=== PATIENT | female | born 1940 | race Caucasian/White ===

== ENCOUNTER 2017-09-08 18:09 | Observation (INO) | payer OTHER ==
[~2017-09-08] VITALS: Ht 157.5 cm; Wt 52.6 kg
[~2017-09-08 18:09] MED LIST: ENAL10TA7 PO; LOVA1TAB47 PO
[2017-09-08 18:30] VITALS: BP 171/77; PULSE 64; RESP 16; TEMP 97.4; O2SAT 99
--- NOTE | 2017-09-08 19:47 | RADRPT ---
EXAM DATE/TIME: 09/08/2017 19:22 [facility] COMPARISON: No previous studies available for comparison. INDICATIONS : Cough, confusion. MEDICAL HISTORY : None. SURGICAL HISTORY : None. ENCOUNTER: Initial ACUITY: 2 weeks PAIN SCORE: 0/10 LOCATION: Bilateral chest FINDINGS: A single view of the chest demonstrates the lungs to be symmetrically aerated without evidence of mas s, infiltrate or effusion. The cardiomediastinal contours are unremarkable. Osseous structures are intact. CONCLUSION: No acute disease. There is no evidence of pneumonia. Richard Parker MD on September 08, 2017 at 19:45 Board Certified Radiologist. This report was verified electronically.
--- NOTE | 2017-09-08 19:59 | RADRPT ---
EXAM DATE/TIME: 09/08/2017 19:50 [facility] COMPARISON: No previous studies available for comparison. INDICATIONS : Altered mental status, loss of memory. RADIATION DOSE: 33.50 CTDIvol (mGy) MEDICAL HISTORY : Hypertension. Cerebrovascular disease. SURGICAL HISTORY : Hysterectomy. ENCOUNTER: Initial ACUITY: 1 day PAIN SCALE: 0/10 LOCATION: cranial TECHNIQUE: Multiple contiguous axial images were obtained of the head. Using automated exposure control and adj ustment of the mA and/or kV according to patient size, radiation dose was kept as low as reasonably a chievable to obtain optimal diagnostic quality images. DICOM format image data is available electro nically for review and comparison. FINDINGS: CEREBRUM: The ventricles are normal for age. No evidence of midline shift, mass lesion, hemorrhage or acute in farction. No extra-axial fluid collections are seen. POSTERIOR FOSSA: The cerebellum and brainstem are intact. The 4th ventricle is midline. The cerebellopontine angle i s unremarkable. EXTRACRANIAL: The visualized portion of the orbits is intact. SKULL: The calvaria is intact. No evidence of skull fracture. CONCLUSION: Negative noncontrast head CT. Richard Parker MD on September 08, 2017 at 19:56 Board Certified Radiologist. This report was verified electronically.
[2017-09-08 20:38] LABS: AUTOMATED NEUTROPHIL # 2.8 TH/MM3 (1.8-7.7); BASOPHIL # 0.1 TH/MM3 (0-0.2); BASOPHIL % 1.1 % (0.0-2.0); EOSINOPHIL # 0.2 TH/MM3 (0-0.4); HEMATOCRIT 40.1 % (35.0-46.0); HEMOGLOBIN 13.8 GM/DL (11.6-15.3); LYMPH % 41.6 % (9.0-44.0); LYMPHOCYTE # 2.5 TH/MM3 (1.0-4.8); MEAN CELL VOLUME 92.1 FL (80.0-100.0); MEAN CORPUSCULAR HEMOGLOBIN 31.7 PG (27.0-34.0); MEAN CORPUSCULAR HGB CONC 34.5 % (32.0-36.0); MEAN PLATELET VOLUME 8.8 FL (7.0-11.0); MONO % 7.4 % (0.0-8.0); MONOCYTE # 0.4 TH/MM3 (0-0.9); NEUT % 45.9 % (16.0-70.0); PLATELET COUNT 274 TH/MM3 (150-450); RED BLOOD COUNT 4.36 MIL/MM3 (4.00-5.30); RED CELL DISTRIBUTION WIDTH 14.1 % (11.6-17.2)
[2017-09-08 20:49] LABS: AMORPHOUS SEDIMENT, URINE RARE; BACTERIA, URINE MANY /hpf; BILIRUBIN, URINE NEG (NEG); BLOOD, URINE NEG (NEG); GLUCOSE,URINE NEG (NEG); KETONE, URINE NEG (NEG); NITRITE,URINE NEG (NEG); PH, URINE 5.5 (5.0-8.5); SQUAMOUS EPITHELIAL CELL URINE 11 /hpf (0-5); URINE COLOR LIGHT-YELLOW (YELLW/STRAW); URINE LEUKOCYTE ESTERASE TRACE (NEG)
[2017-09-08] MEDS ORDERED: ESTR1TAB PO (20:58)
[2017-09-08] MEDS ORDERED: ENAL10TA PO (20:58)
[2017-09-08] MEDS ORDERED: LOVA20TA PO (20:58)
[2017-09-08 21:00] VITALS: BP 163/85; PULSE 68; RESP 18; O2SAT 97
[2017-09-08 21:04] LABS: ALBUMIN 3.9 GM/DL (3.4-5.0); AST (GOT) 24 U/L (15-37); BICARBONATE 25.3 MEQ/L (21.0-32.0); BLOOD UREA NITROGEN 13 MG/DL (7-18); CHLORIDE 104 MEQ/L (98-107); CREATININE 0.79 MG/DL (0.50-1.00); GLOMERULAR FILTRATION RATE 70 ML/MIN (>89); GLUCOSE,RANDOM 86 MG/DL (74-106); SODIUM (NA) 139 MEQ/L (136-145)
[2017-09-08 21:06] LABS: ALT (GPT) 24 U/L (10-53)
[2017-09-08 21:10] LABS: ALKALINE PHOSPHATASE 81 U/L (45-117); TOTAL BILIRUBIN ADULT 0.6 MG/DL (0.2-1.0); TOTAL PROTEIN 7.6 GM/DL (6.4-8.2); TROPONIN I LESS THAN 0.02 NG/ML (0.02-0.05)
--- NOTE | 2017-09-08 21:58 | PD ---
HPI Chief Complaint: Neuro Symptoms/ Deficits Time Seen by Provider: 18:55 Travel History International Travel<30 days: No Contact w/Intl Traveler<30days: No History of Present Illness HPI 77-year-old female that presents to the ED for evaluation of altered mental status. Per patient she has been having episodes of confusion since yesterday. Per patient herself she does not see anything wrong but per family report she has been having personality changes and episodes were "she does not seem to be waited ". Per family and patient she has never had this before. No history of stroke or TIA in the past. She denies any chest pain or shortness of breath. She denies any headache. No numbness, tingling, weakness. Able to move the arms and legs. Patient herself states that she does not see anything wrong but family states that she has been having some episodes where she is having trouble speaking and appears to be very confused. She has a history of having had cold-like symptoms about a couple of weeks ago and was diagnosed with bronchitis and treated with antibiotics. She states that she has been better since that has had no fevers chills or sweats or cough or runny nose. Denies any urinary or bowel movement issues. No other medical issues. PFSH Past Medical History Cancer: No Cardiovascular Problems: Yes High Cholesterol: Yes Endocrine: No Genitourinary: No Hypertension: Yes Immune Disorder: No Implanted Vascular Access Dvce: Yes Musculoskeletal: Yes Neurologic: No Psychiatric: No Reproductive: Yes (PELVIC PROLAPSE) Respiratory: No Past Surgical History Abdominal Surgery: Yes (AGE 5 APPENDECTOMY) Body Medical Devices: BREAST IMPLANTS Genitourinary Surgery: Yes (95' BLADDER SUSPENSION X 2) Gynecologic Surgery: Yes (HYSTERECTOMY AGE 34) Oral Surgery: Yes (AGE 11 T&A) Pacemaker: No Other Surgery: Yes Social History Alcohol Use: No Tobacco Use: No Allergies-Medications (Allergen,Severity, Reaction): Coded Allergies: Fish Containing Products (Unverified Allergy, Severe, TONGUE SWELLING, 03/18) codeine (Unverified Allergy, Severe, NAUSEA/VOMITING, 09/08/17) propoxyphene (Unverified Allergy, Severe, NAUSEA/VOMITING, 09/08/17) Reported Meds & Prescriptions Reported Meds & Active Scripts Active Reported Lovastatin 20 Mg Tab 20 Mg PO DAILY Estradiol 1 Mg Tab 1 Mg PO DAILY Enalapril (Enalapril Maleate) 10 Mg Tab 10 Mg PO DAILY Review of Systems Except as stated in HPI: all other systems reviewed are Neg Physical Exam Narrative GENERAL: SKIN: Warm and dry. HEAD: Atraumatic. Normocephalic. EYES: Pupils equal and round 4 mm reactive to light and accommodation. No scleral icterus. No injection or drainage. ENT: No nasal bleeding or discharge. Mucous membranes pink and moist. Tongue is midline. No uvula deviation. NECK: Trachea midline. No JVD. CARDIOVASCULAR: Regular rate and rhythm. No murmurs, S3, S4. RESPIRATORY: No accessory muscle use. Clear to auscultation. Breath sounds equal bilaterally. GASTROINTESTINAL: Abdomen soft, non-tender, nondistended. Hepatic and splenic margins not palpable. MUSCULOSKELETAL: Extremities without clubbing, cyanosis, or edema. No obvious deformities. Full range of motion of the upper and lower extremities bilaterally. Sensation intact bilaterally. NEUROLOGICAL: Awake and alert. No obvious cranial nerve deficits. Motor grossly within normal limits. Five out of 5 muscle strength in the arms and legs. Normal speech but patient does appear to have sometimes trouble communicating. PSYCHIATRIC: Appropriate mood and affect; insight and judgment normal. Data Data Last Documented VS Vital Signs Date Time Temp Pulse Resp B/P (MAP) Pulse Ox O2 Delivery O2 Flow Rate FiO2 09/08/17 21:00 68 18 163/85 (111) 97 Room Air 09/08/17 18:30 97.4 Orders Orders Electrocardiogram (09/08/17 18:35) Complete Blood Count With Diff (09/08/17 18:35) Comprehensive Metabolic Panel (09/08/17 18:35) Prothrombin Time / Inr (Pt) (09/08/17 18:35) Act Partial Throm Time (Ptt) (09/08/17 18:35) Troponin I (09/08/17 18:35) Urinalysis - C+S If Indicated (09/08/17 18:35) Ct Brain W/O Iv Contrast(Rout) (09/08/17 18:35) Chest, Single Ap (09/08/17 ) Urine Culture (09/08/17 19:45) Labs Laboratory Tests Test 09/08/17 19:45 09/08/17 20:05 Urine Color LIGHT-YELLOW Urine Turbidity CLEAR Urine pH 5.5 Urine Specific [place] 1.010 Urine Protein NEG mg/dL Urine Glucose (UA) NEG mg/dL Urine Ketones NEG mg/dL Urine Occult Blood NEG Urine Nitrite NEG Urine Bilirubin NEG Urine Urobilinogen LESS THAN 2.0 MG/DL Urine Leukocyte Esterase TRACE Urine RBC 1 /hpf Urine WBC 4 /hpf Urine Squamous Epithelial Cells 11 /hpf Urine Amorphous Sediment RARE Urine Bacteria MANY /hpf Microscopic Urinalysis Comment CATH-CULTURE IND White Blood Count 6.0 TH/MM3 Red Blood Count 4.36 MIL/MM3 Hemoglobin 13.8 GM/DL Hematocrit 40.1 % Mean Corpuscular Volume 92.1 FL Mean Corpuscular Hemoglobin 31.7 PG Mean Corpuscular Hemoglobin Concent 34.5 % Red Cell Distribution Width 14.1 % Platelet Count 274 TH/MM3 Mean Platelet Volume 8.8 FL Neutrophils (%) (Auto) 45.9 % Lymphocytes (%) (Auto) 41.6 % Monocytes (%) (Auto) 7.4 % Eosinophils (%) (Auto) 4.0 % Basophils (%) (Auto) 1.1 % Neutrophils # (Auto) 2.8 TH/MM3 Lymphocytes # (Auto) 2.5 TH/MM3 Monocytes # (Auto) 0.4 TH/MM3 Eosinophils # (Auto) 0.2 TH/MM3 Basophils # (Auto) 0.1 TH/MM3 CBC Comment DIFF FINAL Differential Comment Prothrombin Time 10.0 SEC Prothromb Time International Ratio 1.0 RATIO Activated Partial Thromboplast Time 24.9 SEC Blood Urea Nitrogen 13 MG/DL Creatinine 0.79 MG/DL Random Glucose 86 MG/DL Total Protein 7.6 GM/DL Albumin 3.9 GM/DL Calcium Level 9.0 MG/DL Alkaline Phosphatase 81 U/L Aspartate Amino Transf (AST/SGOT) 24 U/L Alanine Aminotransferase (ALT/SGPT) 24 U/L Total Bilirubin 0.6 MG/DL Sodium Level 139 MEQ/L Potassium Level 3.4 MEQ/L Chloride Level 104 MEQ/L Carbon Dioxide Level 25.3 MEQ/L Anion Gap 10 MEQ/L Estimat Glomerular Filtration Rate 70 ML/MIN Troponin I LESS THAN 0.02 NG/ML MDM Medical Decision Making Medical Screen Exam Complete: Yes Emergency Medical Condition: Yes Medical Record Reviewed: Yes Interpretation(s) CBC & BMP Diagram 09/08/17 20:05 Total Protein 7.6, Albumin 3.9, Calcium Level 9.0, Alkaline Phosphatase 81, Aspartate Amino Transf (AST/SGOT) 24, Alanine Aminotransferase (ALT/SGPT) 24, Total Bilirubin 0.[address] 09/08/17 1835 Signed Impressions: Service Date/Time: Friday, September 08, 2017 19:50 - CONCLUSION: Negative noncontrast head CT. Richard Parker MD Chest X-Ray 09/08/17 0000 Signed Impressions: Service Date/Time: Friday, September 08, 2017 19:22 - CONCLUSION: No acute disease. There is no evidence of pneumonia. Richard Parker MD UA negative EKG shows sinus rhythm with no sign of acute ischemia or arrhythmia but LBBB noted. Patient has similar findings on previous EKG at this facility per Dr Salvador. Troponin and CK-MB negative. Differential Diagnosis CVA versus TIA versus altered mental status versus aphasia versus sepsis versus UTI Narrative Course 77-year-old female that presents to the ED for evaluation of altered mental status and confusion. Patient was properly examined and was found to have signs and symptoms concerning for CVA versus TIA. Labs and imaging ordered. Last and imaging here essentially unremarkable. No sign of acute disease but unclear of the symptoms. Patient has had symptoms for about 48 hours and continues to have episodes of this. Definetly concerning for CVA. She does have risk factors including high blood pressure and high cholesterol as well as age. Recommendation is for admission for further eval. Case discussed with Dr. Martinez who agrees to admission. Diagnosis Primary Impression: Altered mental state Qualified Codes: R41.82 - Altered mental status, unspecified Additional Impression: Aphasia Admitting Information Admitting Physician Requests: Brandon Medina Sep 08, 2017 21:58
[2017-09-09] VITALS (7 sets, daily range): BP systolic 112–158; BP diastolic 63–77; PULSE 64–84; RESP 15–17; TEMP 97.3–98.1; O2SAT 94–97
[2017-09-09] MEDS ORDERED: POTASSIUM CHLORIDE 20 MEQ CONTROLLED RELEASE TAB PO ONE (01:45)
[2017-09-09] MEDS ORDERED: ASPIRIN 325 MG TAB PO ONE (01:45)
--- NOTE | 2017-09-09 01:45 | HHI.HP ---
[facility] Uriel Keating MD Admission Diagnosis altered mental status, aphasia, CVA r/o Diagnoses: Travel History International Travel<30 Days: No Contact w/Intl Traveler <30 Da: No History of Present Illness 77-year-old female with a past medical history significant for hypertension and hyperlipidemia presents to the emergency department for the evaluation of altered mental status. The patient reports that approximately 3 weeks ago she developed upper respiratory symptoms and was given a prescription for azithromycin and Medrol Dosepak. She reports then that she started feeling odd after completing these medications. She states she has a three-day history of feeling "like she couldn't think." She reports that her daughters became concerned when she was out with them 2 days ago and was unable to find her words. He denies any slurred speech or facial droop. Denies any focal weakness. She reports memory loss since yesterday. She states she is unable to remember specific events and when she is questioned about her past medical and surgical history she has a difficult time re-creating events. Her friend who is bedside reports that different from her baseline. She denies any headaches. Denies dizziness. No shortness of breath or chest pain. No nausea/ vomiting/diarrhea. No abdominal pain. No weakness or fatigue. Review of Systems Except as stated in HPI: all other systems reviewed are Neg Past Family Social History Past Medical History Hypertension Hyperlipidemia Past Surgical History Appendectomy Tonsillectomy Reported Medications Reported Meds & Active Scripts Active Reported Lovastatin 20 Mg Tab 20 Mg PO DAILY Estradiol 1 Mg Tab 1 Mg PO DAILY Enalapril (Enalapril Maleate) 10 Mg Tab 10 Mg PO DAILY Allergies: Coded Allergies: Fish Containing Products (Unverified Allergy, Severe, TONGUE SWELLING, 03/18) codeine (Unverified Allergy, Severe, NAUSEA/VOMITING, 09/08/17) propoxyphene (Unverified Allergy, Severe, NAUSEA/VOMITING, 09/08/17) Family History Mother of pancreatic cancer Social History Rare alcohol. Denies tobacco and illicit drugs. Physical Exam Vital Signs Vital Signs Date Time Temp Pulse Resp B/P (MAP) Pulse Ox O2 Delivery O2 Flow Rate FiO2 09/09/17 01:27 97.3 64 17 158/72 (100) 96 09/09/17 00:39 80 18 155/72 (99) 97 09/08/17 21:00 68 18 163/85 (111) 97 Room Air 09/08/17 18:30 97.4 64 16 171/77 (108) 99 Physical Exam GENERAL: female sitting up in bed SKIN: No rashes, ecchymoses or lesions. Cool and dry. HEAD: Atraumatic. Normocephalic. No temporal or scalp tenderness. EYES: Pupils equal round and reactive. Extraocular motions intact. No scleral icterus. No injection or drainage. ENT: Nose without bleeding, purulent drainage or septal hematoma. Throat without erythema, tonsillar hypertrophy or exudate. Uvula midline. Airway patent. NECK: Trachea midline. No JVD or lymphadenopathy. Supple, nontender, no meningeal signs. CARDIOVASCULAR: Regular rate and rhythm without murmurs, gallops, or rubs. RESPIRATORY: Clear to auscultation. Breath sounds equal bilaterally. No wheezes , rales, or rhonchi. GASTROINTESTINAL: Abdomen soft, non-tender, nondistended. No hepato-splenomegaly , or palpable masses. No guarding. MUSCULOSKELETAL: Extremities without clubbing, cyanosis, or edema. No joint tenderness, effusion, or edema noted. No calf tenderness. NEUROLOGICAL: Awake and alert. Cranial nerves II through XII intact. Motor and sensory within normal limits. Five out of 5 muscle strength in all muscle groups. Normal speech. Laboratory Laboratory Tests Test 09/08/17 19:45 09/08/17 20:05 Urine Color LIGHT-YELLOW Urine Turbidity CLEAR Urine pH 5.5 Urine Specific [place] 1.010 Urine Protein NEG Urine Glucose (UA) NEG Urine Ketones NEG Urine Occult Blood NEG Urine Nitrite NEG Urine Bilirubin NEG Urine Urobilinogen LESS THAN 2.0 Urine Leukocyte Esterase TRACE Urine RBC 1 Urine WBC 4 Urine Squamous Epithelial Cells 11 Urine Amorphous Sediment RARE Urine Bacteria MANY Microscopic Urinalysis Comment CATH-CULTURE IND White Blood Count 6.0 Red Blood Count 4.36 Hemoglobin 13.8 Hematocrit 40.1 Mean Corpuscular Volume 92.1 Mean Corpuscular Hemoglobin 31.7 Mean Corpuscular Hemoglobin Concent 34.5 Red Cell Distribution Width 14.1 Platelet Count 274 Mean Platelet Volume 8.8 Neutrophils (%) (Auto) 45.9 Lymphocytes (%) (Auto) 41.6 Monocytes (%) (Auto) 7.4 Eosinophils (%) (Auto) 4.0 Basophils (%) (Auto) 1.1 Neutrophils # (Auto) 2.8 Lymphocytes # (Auto) 2.5 Monocytes # (Auto) 0.4 Eosinophils # (Auto) 0.2 Basophils # (Auto) 0.1 CBC Comment DIFF FINAL Differential Comment Prothrombin Time 10.0 Prothromb Time International Ratio 1.0 Activated Partial Thromboplast Time 24.9 Blood Urea Nitrogen 13 Creatinine 0.79 Random Glucose 86 Total Protein 7.6 Albumin 3.9 Calcium Level 9.0 Alkaline Phosphatase 81 Aspartate Amino Transf (AST/SGOT) 24 Alanine Aminotransferase (ALT/SGPT) 24 Total Bilirubin 0.6 Sodium Level 139 Potassium Level 3.4 Chloride Level 104 Carbon Dioxide Level 25.3 Anion Gap 10 Estimat Glomerular Filtration Rate 70 Troponin I LESS THAN 0.02 Date/Time Source Procedure Growth Status 09/08/17 19:45 Urine Catheterized Urine Urine Culture Pending Received Result Diagram: 09/08/17200409/08/172004 Caprini VTE Risk Assessment Caprini VTE Risk Assessment: Mod/High Risk (score >= 2) Caprini Risk Assessment Model Point Value = 1 Point Value = 2 Point Value = 3 Point Value = 5 Age 41-60 Minor surgery BMI > 25 kg/m2 Swollen legs Varicose veins or History of unexplained or recurrent spontaneous Oral contraceptives or hormone replacement Sepsis (< 1 month) Serious lung disease, including pneumonia (< 1 month) Abnormal pulmonary function Acute myocardial infarction Congestive heart failure (< 1 month) History of inflammatory bowel disease Medical patient at bed rest Age 61-74 Arthroscopic surgery Major open surgery (> 45 min) Laparoscopic surgery (> 45 min) Malignancy Confined to bed (> 72 hours) Immobilizing plaster cast Central venous access Age >= 75 History of VTE Family history of VTE Factor V Leiden Prothrombin [id number] Lupus anticoagulant Anticardiolipin antibodies Elevated serum homocysteine Heparin-induced thrombocytopenia Other congenital or acquired thrombophilia Stroke (< 1 month) Elective arthroplasty Hip, pelvis, or leg fracture Acute spinal cord injury (< 1 month) Prophylaxis Regimen Total Risk Factor Score Risk Level Prophylaxis Regimen 0-1 Low Early ambulation 2 Moderate Order ONE of the following: *Sequential Compression Device (SCD) *Heparin 5000 units SQ BID 3-4 Higher Order ONE of the following medications: *Heparin 5000 units SQ TID *Enoxaparin/Lovenox 40 mg SQ daily (WT < 150 kg, CrCl > 30 mL/min) *Enoxaparin/Lovenox 30 mg SQ daily (WT < 150 kg, CrCl > 10-29 mL/min) *Enoxaparin/Lovenox 30 mg SQ BID (WT < 150 kg, CrCl > 30 mL/min) AND/OR *Sequential Compression Device (SCD) 5 or more Highest Order ONE of the following medications: *Heparin 5000 units SQ TID (Preferred with Epidurals) *Enoxaparin/Lovenox 40 mg SQ daily (WT < 150 kg, CrCl > 30 mL/min) *Enoxaparin/Lovenox 30 mg SQ daily (WT < 150 kg, CrCl > 10-29 mL/min) *Enoxaparin/Lovenox 30 mg SQ BID (WT < 150 kg, CrCl > 30 mL/min) AND *Sequential Compression Device (SCD) Assessment and Plan Assessment and Plan Assessment/plan: 1. Altered mental status CT of the head negative for acute process MRI/MRA brain, carotid ultrasound pending Neurology consulted, appreciate recommendations Aspirin 2. Hypertension/hyperlipidemia Continue home medications 3. Hypokalemia Status post by mouth repletion Follow-up [facility] healthy diet Electrolytes: Monitor and replete when necessary Suzan Martinez MD Sep 09, 2017 01:45
[2017-09-09 07:37] LABS: BICARBONATE 23.8 MEQ/L (21.0-32.0); CALCIUM 8.7 MG/DL (8.5-10.1); CREATININE 0.62 MG/DL (0.50-1.00)
--- NOTE | 2017-09-09 09:12 | RADRPT ---
EXAM DATE/TIME: 09/09/2017 08:11 [facility] COMPARISON: No previous studies available for comparison. INDICATIONS : CVA. MEDICAL HISTORY : Hypercholesterolemia. Hypertension. Back problems. Cardiac disorders. Pelvic prolapse SURGICAL HISTORY : Appendectomy. Hysterectomy. Bladder suspension. ENCOUNTER: Initial ACUITY: 1 day PAIN SCORE: 0/10 LOCATION: Bilateral neck PEAK SYSTOLIC VELOCITIES (cm/sec): ICA/CCA RATIO: Right: 2.0 Left: 1.1 ICA: Right: 166 Left: 101 CCA: Right: 83 Left: 93 ECA: Right: 61 Left: 57 VERTEBRAL: Right: 84 antegrade Left: 45 antegrade Elevated flow velocities and ICA/CCA ratios have been found to correlate with increased degrees of vessel stenosis, calculated as percentage of diameter relative to a normal segment of distal ICA/CCA FINDINGS: RIGHT CAROTID: Elevated ratios with normal velocities. Moderate calcific plaque. LEFT CAROTID: No significant stenosis is visualized. The waveforms are within normal limits. VERTEBRAL ARTERIES: Antegrade flow is seen in both vertebral arteries. MISCELLANEOUS: None. CONCLUSION: Moderate calcific plaque on the right. Borderline significant right stenosis. MR angiogram or CTA w ould be of benefit. Rehan Andrews MD FACR on September 09, 2017 at 9:08 Board Certified Radiologist. This report was verified electronically.
[2017-09-09] MEDS: PRAVASTATIN SOD 20 MG TAB PO SCH (09:44)
[2017-09-09] MEDS: ENALAPRIL MALEATE 10 MG TAB PO SCH (09:44)
[2017-09-09] MEDS: ESTRADIOL 1 MG TAB PO SCH (09:44)
--- NOTE | 2017-09-09 11:27 | RADRPT ---
EXAM DATE/TIME: 09/09/2017 10:08 [place] Corrected on: September 09, 2017; [facility] COMPARISON: CT BRAIN W/O CONTRAST, September 08, 2017, 19:50. INDICATIONS : Altered mental status. Confusion. MEDICAL HISTORY : Hypertension. SURGICAL HISTORY : Appendectomy. Tonsillectomy. ENCOUNTER: Subsequent ACUITY: 2 day PAIN SCORE: 0/10 LOCATION: cranial TECHNIQUE: Multiplanar, multisequence MRI of the brain was performed without contrast. FINDINGS: Marked periventricular white matter changes are evident with an old appearing ischemic event in the t halamus on the left. There is no restricted diffusion to suggest an ischemic ischemic process. There are no extra-axial fluid collection appreciated. The posterior fossa is unremarkable There are no subacute or acute parenchymal hemorrhages. CONCLUSION: Abnormal brain as above most likely ischemic with most significant change left thalamus, subacute by MRI. Demyelinating process is thought to be less likely. Rehan Andrews MD FACR on September 09, 2017 at 11:23 Board Certified Radiologist. This report was verified electronically. Rehan Andrews MD FACR on September 09, 2017 at 14:46 Board Certified Radiologist. This report was verified electronically.
--- NOTE | 2017-09-09 11:28 | RADRPT ---
EXAM DATE/TIME: 09/09/2017 10:08 [facility] COMPARISON: No previous studies available for comparison. INDICATIONS : Altered mental status. Confusion. MEDICAL HISTORY : Hypertension. SURGICAL HISTORY : Appendectomy. Tonsillectomy. ENCOUNTER: Subsequent ACUITY: 2 day PAIN SCORE: 0/10 LOCATION: cranial Please note a normal MRA of the brain does not entirely exclude the possibility of a small aneurysm, nor the possibility of distal intracranial vessel disease. TECHNIQUE: 3D time of flight MRA was performed. Source images, multiplanar STS MIP, and 3D volume MIP reconstru ctions were reviewed. FINDINGS: There is excellent visualization of the major intracranial arteries out to the second-order branch ve ssels. There is no evidence for aneurysm, vessel truncation or stenosis, and no evidence for vascula r malformation. 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 CONCLUSION: Negative MRA of the brain.. Rehan Andrews MD FACR on September 09, 2017 at 11:25 Board Certified Radiologist. This report was verified electronically.
--- NOTE | 2017-09-09 16:34 | MB ---
cc: Mic Voegl MD DATE: 09/09/2017 HISTORY OF PRESENT ILLNESS: She is a 77-year-old woman seen in neurological consultation. She was brought to the hospital yesterday with some history of some short-term memory problems, difficulty finding words, some thinking difficulty in the past 2 or 3 days. Some 3 weeks ago, she was treated for upper respiratory tract infection. She normally takes lovastatin and enalapril at all. She does not take any aspirin or blood thinners. The patient has no history of stroke, TIAs, seizures. NEUROLOGIC EXAMINATION: Showed an alert and pleasant woman. Mentation is normal. At times, seems to have a little bit of difficulty with word finding and seems to have to think about some responses that, according to the family, she normally would respond more promptly. I am not seeing any hemiparesis, no facial weakness. Visual hahn are full and reflexes 1-2+ throughout. Plantar responses flexor. I did not ambulate the patient. LABORATORY AND DIAGNOSTIC DATA: I looked at the MRI brain. It shows a subacute left thalamic stroke and otherwise, microvascular disease. I see a normal CBC. Chemistry fairly benign as well. ASSESSMENT: Small left thalamic stroke, subacute, likely causing all of her symptoms. There is some moderate right carotid plaque, but evidently, this is incidental. In this patient, I would recommend starting aspirin and her EKG is sinus rhythm. To check an echocardiogram and lipid profile. We will do aspirin 325 mg daily now and at home, perhaps reduce to 2 baby aspirins a day. Continue to do heart monitor another day or so, and if everything goes well, she probably could be discharged. Consider Holter monitor as outpatient or an extended 30-day heart monitor as well. The goal will be to have an LDL below 60, and we will see what the echocardiogram shows. Discussed with the family at bedside. Thank you for asking us to assist in her care. Mic Vogel MD OFC/SB , 04:17 PM , 04:34 PM
[2017-09-09 17:37] LABS: HEMOGLOBIN A1C 5.4 % (4.3-6.0)
[2017-09-09] MEDS: ASPIRIN 325 MG TAB PO SCH (17:46)
--- NOTE | 2017-09-09 21:20 | HHI.PR ---
Subjective Remarks NOT SEEN Objective Vitals Vital Signs Date Time Temp Pulse Resp B/P (MAP) Pulse Ox O2 Delivery O2 Flow Rate FiO2 09/09/17 18:39 84 09/09/17 16:00 97.5 69 17 125/70 (88) 94 09/09/17 12:00 98.1 69 17 135/77 (96) 97 09/09/17 08:00 97.3 66 17 144/70 (94) 96 09/09/17 01:27 97.3 64 17 158/72 (100) 96 09/09/17 00:39 80 18 155/72 (99) 97 I/O 09/08/17 09/08/17 09/08/17 09/09/17 09/09/17 09/09/17 07:00 15:00 23:00 07:00 15:00 23:00 Intake Total 1080 ml Balance 1080 ml Intake Oral 1080 ml # Voids 2 5 # Bowel Movements 0 Result Diagram: 09/08/17200409/09/17 0633 Imaging Last Impressions Head Magnetic Resonance Angiography 09/09/17 0000 Signed Impressions: Service Date/Time: Saturday, September 09, 2017 10:08 - CONCLUSION: Negative MRA of the brain.. Rehan Andrews MD FACR Carotid Artery Ultrasound 09/09/17 0000 Signed Impressions: Service Date/Time: Saturday, September 09, 2017 08:11 - CONCLUSION: Moderate calcific plaque on the right. Borderline significant right stenosis. MR angiogram or CTA would be of benefit. Rehan Andrews MD FACR Brain MRI 09/09/17 0000 Signed Impressions: Service Date/Time: Saturday, September 09, 2017 10:08 - CONCLUSION: Abnormal brain as above most likely ischemic with most significant change left thalamus , subacute by MRI. Demyelinating process is thought to be less likely. Rehan Andrews MD FACR Head CT 09/08/17 0705 Signed Impressions: Service Date/Time: Friday, September 08, 2017 19:50 - CONCLUSION: Negative noncontrast head CT. Richard Parker MD Chest X-Ray 09/08/17 0000 Signed Impressions: Service Date/Time: Friday, September 08, 2017 19:22 - CONCLUSION: No acute disease. There is no evidence of pneumonia. Richard Parker MD Objective Remarks GENERAL: female sitting up in bed SKIN: No rashes, ecchymoses or lesions. Cool and dry. HEAD: Atraumatic. Normocephalic. No temporal or scalp tenderness. EYES: Pupils equal round and reactive. Extraocular motions intact. No scleral icterus. No injection or drainage. ENT: Nose without bleeding, purulent drainage or septal hematoma. Throat without erythema, tonsillar hypertrophy or exudate. Uvula midline. Airway patent. NECK: Trachea midline. No JVD or lymphadenopathy. Supple, nontender, no meningeal signs. CARDIOVASCULAR: Regular rate and rhythm without murmurs, gallops, or rubs. RESPIRATORY: Clear to auscultation. Breath sounds equal bilaterally. No wheezes , rales, or rhonchi. GASTROINTESTINAL: Abdomen soft, non-tender, nondistended. No hepato-splenomegaly , or palpable masses. No guarding. MUSCULOSKELETAL: Extremities without clubbing, cyanosis, or edema. No joint tenderness, effusion, or edema noted. No calf tenderness. NEUROLOGICAL: Awake and alert. Cranial nerves II through XII intact. Motor and sensory within normal limits. Five out of 5 muscle strength in all muscle groups. Normal speech. A/P Problem List: (1) Altered mental state ICD Code: R41.82 - Altered mental status, unspecified Status: Acute Assessment and Plan 1. Altered mental status CT of the head negative for acute process MRI/MRA brain with small subacute thalamic CVA, carotid ultrasound with significant r carotid stenosis Neurology consulted, appreciate recommendations Aspirin 2. Hypertension/hyperlipidemia Continue home medications 3. Hypokalemia Status post by mouth repletion Follow-up [facility] Heart healthy diet Electrolytes: Monitor and replete when necessary Problem Qualifiers (1) Altered mental state: Qualified Codes: R41.82 - Altered mental status, unspecified Caio Sherwood MD Sep 09, 2017 21:20
--- NOTE | 2017-09-09 21:25 | EKG ---
Date Performed: 09/08/2017 Time Performed: 20:06:04 PTAGE: 77 years EKG: Sinus rhythm ATRIAL AND VENTRICULAR PACEMAKER RHYTHM ABNORMAL ECG PREVIOUS TRACING : 07/30/2011 13.41 DOCTOR: Capo Sparks Interpretating Date/Time 09/09/2017 21:24:38
[2017-09-09] MEDS ORDERED: ASPI81TA23 PO (21:27)
--- NOTE | 2017-09-09 21:27 | HHI.DCPOC ---
Discharge Care Plan Diagnosis: (1) Aphasia (2) Altered mental state Your Health Problems Are: Difficulty with ADL Exercise Tolerance Goals to Promote Your Health * To prevent worsening of your condition and complications * To maintain your health at the optimal level Directions to Meet Your Goals Take your medications as prescribed Follow your dietary instruction Follow activity as directed Keep your appointments as scheduled Take your immunizations and boosters as scheduled If your symptoms worsen call your PCP, if no PCP go to Urgent Care Center or Emergency Room Smoking is Dangerous to Your Health. Avoid second hand smoke Call the 24-hour hour crisis hotline for domestic abuse at Caio Sherwood MD Sep 09, 2017 21:27
[2017-09-10] VITALS (8 sets, daily range): BP systolic 110–137; BP diastolic 62–72; PULSE 66–76; RESP 15–19; TEMP 97.3–98; O2SAT 91–97
[2017-09-10 06:38] LABS: CHOLESTEROL/ HDL RATIO 2.78 RATIO; HDL CHOLESTEROL 68.9 MG/DL (40.0-60.0)
[2017-09-10] MEDS: ASPIRIN 325 MG TAB PO SCH (09:20)
[2017-09-10] MEDS: ESTRADIOL 1 MG TAB PO SCH (09:22)
[2017-09-10] MEDS: PRAVASTATIN SOD 20 MG TAB PO SCH (09:22)
[2017-09-10] MEDS: ENALAPRIL MALEATE 10 MG TAB PO SCH (09:22)
[2017-09-10] MEDS ORDERED: LOVA20TA PO (10:55)
--- NOTE | 2017-09-10 12:19 | HHI.PR ---
Subjective Remarks F/U CVA. Patient has no complaints she wants to go home improving forgetfulness discussed with family. Risk factor modification. Patient agrees to stay for possible DENIA pending cardiology consult. Echocardiogram results with possible atrial shunt. Discussed with neurology if confirmed PFO may need anticoagulation if not a surgical candidate Objective Vitals Vital Signs Date Time Temp Pulse Resp B/P (MAP) Pulse Ox O2 Delivery O2 Flow Rate FiO2 09/10/17 08:00 97.3 67 19 112/67 (82) 97 09/10/17 04:00 98.0 74 15 110/62 (78) 96 09/10/17 00:00 97.9 70 15 115/62 (79) 91 09/10/17 00:00 66 09/09/17 20:00 97.4 77 15 112/63 (79) 95 09/09/17 20:00 75 09/09/17 18:39 84 09/09/17 16:00 97.5 69 17 125/70 (88) 94 I/O 09/09/17 09/09/17 09/09/17 09/10/17 09/10/17 09/10/17 07:00 15:00 23:00 07:00 15:00 23:00 Intake Total 1080 ml 200 ml Balance 1080 ml 200 ml Intake Oral 1080 ml 200 ml # Voids 2 5 3 # Bowel Movements 0 0 Result Diagram: 09/08/17200409/09/1733 Imaging Last Impressions Head Magnetic Resonance Angiography 09/09/17 0000 Signed Impressions: Service Date/Time: Saturday, September 09, 2017 10:08 - CONCLUSION: Negative MRA of the brain.. Rehan Andrews MD FACR Carotid Artery Ultrasound 09/09/17 0000 Signed Impressions: Service Date/Time: Saturday, September 09, 2017 08:11 - CONCLUSION: Moderate calcific plaque on the right. Borderline significant right stenosis. MR angiogram or CTA would be of benefit. Rehan Andrews MD FACR Brain MRI 09/09/17 0000 Signed Impressions: Service Date/Time: Saturday, September 09, 2017 10:08 - CONCLUSION: Abnormal brain as above most likely ischemic with most significant change left thalamus , subacute by MRI. Demyelinating process is thought to be less likely. Rehan Andrews MD FACR Head CT 09/08/17 [id number] Signed Impressions: Service Date/Time: Friday, September 08, 2017 19:50 - CONCLUSION: Negative noncontrast head CT. Richard Parker MD Chest X-Ray 09/08/17 0000 Signed Impressions: Service Date/Time: Friday, September 08, 2017 19:22 - CONCLUSION: No acute disease. There is no evidence of pneumonia. Richard Parker MD Objective Remarks GENERAL: female sitting up in bed SKIN: No rashes, ecchymoses or lesions. Cool and dry. CARDIOVASCULAR: Regular rate and rhythm without murmurs, gallops, or rubs. RESPIRATORY: Clear to auscultation. Breath sounds equal bilaterally. No wheezes , rales, or rhonchi. GASTROINTESTINAL: Abdomen soft, non-tender, nondistended. No guarding. MUSCULOSKELETAL: Extremities without clubbing, cyanosis, or edema. No joint tenderness, effusion, or edema noted. No calf tenderness. NEUROLOGICAL: Awake and alert. Cranial nerves II through XII intact. Motor and sensory within normal limits. Five out of 5 muscle strength in all muscle groups. Normal speech. A/P Problem List: (1) Altered mental state ICD Code: R41.82 - Altered mental status, unspecified Status: Acute Assessment and Plan 1. Altered mental status CT of the head negative for acute process MRI/MRA brain with small subacute left thalamic CVA, carotid ultrasound with borderline significant r carotid stenosis Neurology consulted, appreciate recommendations Continue aspirin and increase Pravachol to 40 mg daily. Risk factor modification. Agrees with DENIA consult cardiology to evaluate for possible PFO in light of abnormal echocardiogram. May need chronic anticoagulation if not a surgical candidate for PFO Outpatient follow-up regarding borderline significant right carotid stenosis 2. Hypertension/hyperlipidemia. Echocardiogram shows LVH and diastolic dysfunction. Strict BP control. CHF education, I/O and monitor weight Continue home medications 3. Hypokalemia Status post by mouth repletion Follow-up [facility] Heart healthy diet Electrolytes: Monitor and replete when necessary Discharge Planning Discharge after DENIA Problem Qualifiers (1) Altered mental state: Qualified Codes: R41.82 - Altered mental status, unspecified Caio Sherwood MD Sep 10, 2017 12:19
--- NOTE | 2017-09-10 15:15 | ECHRPT ---
Indication: CVA/TIA CONCLUSIONS Normal left ventricular size. The left ventricular systolic function is normal with an estimated ejection fraction in the range of 60-65%. Mild concentric left ventricular hypertrophy. Doppler parameters are consistent with impaired left ventricular relaxtion (grade 1 diastolic dysfun ction). The left atrial size is vlmf-[id number] dilated. The right atrial size is svnf-np-rmazjfmjax dilated. Normal atrial septal thickness. There was redundancy of the interatrial septum, with borderline criterial for septal aneurysm (benig n finding). A possible atrial level shunt is demonstrated by color flow Doppler interrogation, clinical correlat ion recommended. The aortic root and proximal ascending aorta are not well visualized. Mild mitral valve regurgitation. Aortic valve sclerosis is present. Mild aortic valve regurgitation. There is trace tricuspid valve regurgitation. The estimated pulmonary arterial pressure is 26 mmHg. Normal estimated pulmonary pressures. A prominent epicardial fat pad is present. BP: 110 / 62 HR: 74 Rhythm: Sinus MEASUREMENTS (Male / Female) Normal Values Technical Quality:Fair 2D ECHO LV Diastolic Diameter PLAX 3.7 cm 4.2 - 5.9 / 3.9 - 5.3 cm LV Systolic Diameter PLAX 2.5 cm IVS Diastolic Thickness 0.9 cm 0.6 - 1.0 / 0.6 - 0.9 cm LVPW Diastolic Thickness 0.9 cm 0.6 - 1.0 / 0.6 - 0.9 cm LV Relative Wall Thickness 0.5 RV Internal Dim ED PLAX 2.8 cm LVOT Diameter 2.0 cm Aortic Root Diameter 2.7 cm LA Systolic Diameter LX 3.1 cm 3.0 - 4.0 / 2.7 - 3.8 cm DOPPLER AV Peak Velocity 114.0 cm/s AV Peak Gradient 5.2 mmHg AV Mean Gradient 3.0 mmHg AV Velocity Time Integral 17.8 cm LVOT Peak Velocity 79.0 cm/s LVOT Peak Gradient 2.5 mmHg LVOT Velocity Time Integral 14.7 cm AV Area Cont Eq vti 2.6 cm AV Area Cont Eq pk 2.2 cm Mitral E Point Velocity 40.5 cm/s Mitral A Point Velocity 69.6 cm/s Mitral E to A Ratio 0.6 LV E' Lateral Velocity 4.5 cm/s Mitral E to LV E' Lateral Ratio 9.0 LV E' Septal Velocity 6.0 cm/s Mitral E to LV E' Septal Ratio 6.7 TR Peak Velocity 197.0 cm/s TR Peak Gradient 16.0 mmHg Right Atrial Pressure 10.0 mmHg Pulmonary Artery Systolic Pressu 25.5 mmHg Right Ventricular Systolic Press 25.5 mmHg PV Peak Velocity 58.7 cm/s PV Peak Gradient 1.4 mmHg FINDINGS LEFT VENTRICLE Normal left ventricular size. The left ventricular systolic function is normal with an estimated ejection fraction in the range of 60-65%. Mild concentric left ventricular hypertrophy. Doppler parameters are consistent with impaired left ventricular relaxtion (grade 1 diastolic dysfun ction). RIGHT VENTRICLE Normal right ventricular size and systolic function. LEFT ATRIUM The left atrial size is stfv-wb-cfxxocvqjg dilated. RIGHT ATRIUM The right atrial size is cbhs-ys-kjytretyzk dilated. ATRIAL SEPTUM Normal atrial septal thickness. There was redundancy of the interatrial septum, with borderline criterial for septal aneurysm (benig n finding). A possible atrial level shunt is demonstrated by color flow Doppler interrogation, clinical correlat ion recommended. AORTA The aortic root and proximal ascending aorta are not well visualized. MITRAL VALVE Mild mitral valve regurgitation. AORTIC VALVE Aortic valve sclerosis is present. Mild aortic valve regurgitation. TRICUSPID VALVE There is trace tricuspid valve regurgitation. The estimated pulmonary arterial pressure is 26 mmHg. Normal estimated pulmonary pressures. PULMONARY VALVE No pulmonary valve regurgitation or stenosis. VESSELS The inferior vena cava is normal in size. PERICARDIUM No pericardial effusion. A prominent epicardial fat pad is present. Ramon Liang MD, FACC (Electronically Signed) Final Date:10 September 2017 15:14
--- NOTE | 2017-09-10 18:21 | HHI.PR ---
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 anticoagulation please call prn over weekend Subjective Subjective Comments No acute events reported No headache Active Medications Current Medications Medications (Trade) Dose Ordered Sig/Mike Route Start Time Stop Time Status Last Admin (Vasotec) 10 mg DAILY PO 09/09/17 09:00 09/10/17 09:22 (Estradiol) 1 mg DAILY PO 09/09/17 09:00 09/10/17 09:22 (Aspirin) 325 mg DAILY PO 09/09/17 15:30 09/10/17 09:20 (Pravachol) 40 mg DAILY PO 09/11/17 09:00 Allergies Allergies Coded Allergies Fish Containing Products (Unverified Allergy, Severe, TONGUE SWELLING, 09/08/17 ) codeine (Unverified Allergy, Severe, NAUSEA/VOMITING, 09/08/17) propoxyphene (Unverified Allergy, Severe, NAUSEA/VOMITING, 09/08/17) Exam I&O / VS 09/10/17 09/10/17 09/11/17 15:00 23:00 07:00 Intake Total 575 ml Balance 575 ml Intake Oral 575 ml # Voids 6 # Bowel Movements 1 Vital Signs Date Time Temp Pulse Resp B/P (MAP) Pulse Ox O2 Delivery O2 Flow Rate FiO2 09/10/17 16:00 97.3 68 18 130/72 (91) 95 09/10/17 12:02 74 09/10/17 12:00 97.6 76 17 137/69 (91) 91 09/10/17 08:09 72 09/10/17 08:00 97.3 67 19 112/67 (82) 97 09/10/17 04:00 98.0 74 15 110/62 (78) 96 09/10/17 00:00 97.9 70 15 115/62 (79) 91 09/10/17 00:00 66 09/09/17 20:00 97.4 77 15 112/63 (79) 95 09/09/17 20:00 75 09/09/17 18:39 84 Objective Radiology Results Last 48 hours Impressions Head Magnetic Resonance Angiography 09/09/17 0000 Signed Impressions: Service Date/Time: Saturday, September 09, 2017 10:08 - CONCLUSION: Negative MRA of the brain.. Rehan Andrews MD FACR Carotid Artery Ultrasound 09/09/17 0000 Signed Impressions: Service Date/Time: Saturday, September 09, 2017 08:11 - CONCLUSION: Moderate calcific plaque on the right. Borderline significant right stenosis. MR angiogram or CTA would be of benefit. Rehan Andrews MD FACR Brain MRI 09/09/17 0000 Signed Impressions: Service Date/Time: Saturday, September 09, 2017 10:08 - CONCLUSION: Abnormal brain as above most likely ischemic with most significant change left thalamus , subacute by MRI. Demyelinating process is thought to be less likely. Rehan Andrews MD FACR Head CT 09/08/17 1835 Signed Impressions: Service Date/Time: Friday, September 08, 2017 19:50 - CONCLUSION: Negative noncontrast head CT. Richard Parker MD Micro and Labs Laboratory Tests Test 09/10/17 05:15 Triglycerides Level 133 Cholesterol Level 192 LDL Cholesterol 97 HDL Cholesterol 68.9 Cholesterol/HDL Ratio 2.78 Date/Time Source Procedure Growth Status 09/08/17 19:45 Urine Catheterized Urine Urine Culture - Final 10-50,000 CFU/ML MIXED GRAM POSITIVE ... Complete Mic Vogel MD Sep 10, 2017 18:21
[2017-09-11] VITALS: BP 117/56; PULSE 70; PULSE 73; RESP 16; TEMP 97.4; O2SAT 97
[2017-09-11 04:00] VITALS: PULSE 65
[2017-09-11 04:55] VITALS: BP 117/62; PULSE 70; RESP 16; TEMP 97.4; O2SAT 95
[2017-09-11] MEDS ORDERED: LACTATED RINGER'S 1000 ML IV PRN (06:15)
[2017-09-11 08:00] VITALS: BP 106/59; PULSE 65; RESP 16; TEMP 97.4; O2SAT 94
[2017-09-11 08:07] VITALS: PULSE 76
[2017-09-11] MEDS: ASPIRIN 325 MG TAB PO SCH (08:34)
[2017-09-11] MEDS: ENALAPRIL MALEATE 10 MG TAB PO SCH (08:34)
[2017-09-11] MEDS: ESTRADIOL 1 MG TAB PO SCH (08:35)
[2017-09-11] MEDS ORDERED: PRAVASTATIN SOD 20 MG TAB PO SCH (09:00)
--- NOTE | 2017-09-11 10:41 | HHI.PR ---
Subjective Remarks Follow-up CVA. Is doing okay asymptomatic ambulating in the hallway awaiting DENIA. Agrees with anticoagulation with Coumadin if indicated. Seen with daughter discussed with nursing Objective Vitals Vital Signs Date Time Temp Pulse Resp B/P (MAP) Pulse Ox O2 Delivery O2 Flow Rate FiO2 09/11/17 08:00 97.4 65 16 106/59 (75) 94 09/11/17 04:55 97.4 70 16 117/62 (80) 95 09/11/17 04:00 65 09/11/17 00:00 70 09/11/17 00:00 97.4 73 16 117/56 (76) 97 09/10/17 20:00 75 09/10/17 20:00 97.6 75 16 115/65 (82) 94 09/10/17 16:00 97.3 68 18 130/72 (91) 95 09/10/17 12:02 74 09/10/17 12:00 97.6 76 17 137/69 (91) 91 I/O 09/10/17 09/10/17 09/10/17 09/11/17 09/11/17 09/11/17 07:00 15:00 23:00 07:00 15:00 23:00 Intake Total 200 ml 575 ml Balance 200 ml 575 ml Intake Oral 200 ml 575 ml # Voids 3 6 1 # Bowel Movements 0 1 Result Diagram: 09/08/17200409/09/17 0633 Imaging Last Impressions Head Magnetic Resonance Angiography 09/09/17 0000 Signed Impressions: Service Date/Time: Saturday, September 09, 2017 10:08 - CONCLUSION: Negative MRA of the brain.. Rehna Andrews MD FACR Carotid Artery Ultrasound 09/09/17 0000 Signed Impressions: Service Date/Time: Saturday, September 09, 2017 08:11 - CONCLUSION: Moderate calcific plaque on the right. Borderline significant right stenosis. MR angiogram or CTA would be of benefit. Rehan Andrews MD FACR Brain MRI 09/09/17 0000 Signed Impressions: Service Date/Time: Saturday, September 09, 2017 10:08 - CONCLUSION: Abnormal brain as above most likely ischemic with most significant change left thalamus , subacute by MRI. Demyelinating process is thought to be less likely. Rehan Andrews MD FACR Head CT 09/08/17 1835 Signed Impressions: Service Date/Time: Friday, September 08, 2017 19:50 - CONCLUSION: Negative noncontrast head CT. Richard Parker MD Chest X-Ray 09/08/17 0000 Signed Impressions: Service Date/Time: Friday, September 08, 2017 19:22 - CONCLUSION: No acute disease. There is no evidence of pneumonia. Richard Parker MD Objective Remarks GENERAL: female sitting up in bed SKIN: No rashes, ecchymoses or lesions. Cool and dry. CARDIOVASCULAR: Regular rate and rhythm without murmurs, gallops, or rubs. RESPIRATORY: Clear to auscultation. Breath sounds equal bilaterally. No wheezes , rales, or rhonchi. GASTROINTESTINAL: Abdomen soft, non-tender, nondistended. No guarding. MUSCULOSKELETAL: Extremities without clubbing, cyanosis, or edema. No joint tenderness, effusion, or edema noted. No calf tenderness. NEUROLOGICAL: Awake and alert. Cranial nerves II through XII intact. Motor and sensory within normal limits. Five out of 5 muscle strength in all muscle groups. Normal speech. A/P Problem List: (1) Altered mental state ICD Code: R41.82 - Altered mental status, unspecified Status: Acute Assessment and Plan 1. Altered mental status CT of the head negative for acute process MRI/MRA brain with small subacute left thalamic CVA, carotid ultrasound with borderline significant r carotid stenosis Neurology consulted, appreciate recommendations Continue aspirin and increase Pravachol to 40 mg daily. Risk factor modification. Agrees with DENIA consulted cardiology to evaluate for possible PFO in light of abnormal echocardiogram. May need anticoagulation with Coumadin Outpatient follow-up regarding borderline significant right carotid stenosis 2. Hypertension/hyperlipidemia. Echocardiogram shows LVH and diastolic dysfunction. Strict BP control. CHF education, I/O and monitor weight Continue home medications 3. Hypokalemia Status post by mouth repletion Follow-up [facility] Heart healthy diet Electrolytes: Monitor and replete when necessary Discharge Planning Discharge after DENIA Problem Qualifiers (1) Altered mental state: Qualified Codes: R41.82 - Altered mental status, unspecified Caio Sherwood MD Sep 11, 2017 10:41
[2017-09-11] MEDS ORDERED: PROPOFOL 200 MG/20 ML AMP ONE (12:59)
[2017-09-11 16:00] VITALS: BP 118/73; PULSE 69; RESP 18; TEMP 97.5; O2SAT 94
--- NOTE | 2017-09-11 17:39 | HHI.DS ---
Discharge Summary Admission Date Sep 08, 2017 at 22:01 Discharge Date: Sep 11, 2017 Admitting Diagnosis altered mental status, aphasia, CVA r/o (1) Altered mental state ICD Code: R41.82 - Altered mental status, unspecified Diagnosis: Principal Status: Acute Procedures DENIA Brief History - From Admission 77-year-old female with a past medical history significant for hypertension and hyperlipidemia presents to the emergency department for the evaluation of altered mental status. The patient reports that approximately 3 weeks ago she developed upper respiratory symptoms and was given a prescription for azithromycin and Medrol Dosepak. She reports then that she started feeling odd after completing these medications. She states she has a three-day history of feeling "like she couldn't think." She reports that her daughters became concerned when she was out with them 2 days ago and was unable to find her words. He denies any slurred speech or facial droop. Denies any focal weakness. She reports memory loss since yesterday. She states she is unable to remember specific events and when she is questioned about her past medical and surgical history she has a difficult time re-creating events. Her friend who is bedside reports that different from her baseline. She denies any headaches. Denies dizziness. No shortness of breath or chest pain. No nausea/ vomiting/diarrhea. No abdominal pain. No weakness or fatigue. CBC/BMP: 09/08/17200409/09/17 0633 Significant Findings Laboratory Tests Test 09/08/17 19:45 09/08/17 20:05 09/09/17 06:33 09/10/17 05:15 Urine Leukocyte Esterase TRACE (NEG) Urine Bacteria MANY /hpf (NONE) Potassium Level 3.4 MEQ/L (3.5-5.1) Estimat Glomerular Filtration Rate 70 ML/MIN (>89) Troponin I LESS THAN 0.02 NG/ML Chloride Level 110 MEQ/L (98-107) HDL Cholesterol 68.9 MG/DL (40.0-60.0) Imaging Last Impressions Head Magnetic Resonance Angiography 09/09/17 0000 Signed Impressions: Service Date/Time: Saturday, September 09, 2017 10:08 - CONCLUSION: Negative MRA of the brain.. Rehan Andrews MD FACR Carotid Artery Ultrasound 09/09/17 0000 Signed Impressions: Service Date/Time: Saturday, September 09, 2017 08:11 - CONCLUSION: Moderate calcific plaque on the right. Borderline significant right stenosis. MR angiogram or CTA would be of benefit. Rehan Andrews MD FACR Brain MRI 09/09/17 0000 Signed Impressions: Service Date/Time: Saturday, September 09, 2017 10:08 - CONCLUSION: Abnormal brain as above most likely ischemic with most significant change left thalamus , subacute by MRI. Demyelinating process is thought to be less likely. Rehan Andrews MD FACR Head CT 09/08/17 1835 Signed Impressions: Service Date/Time: Friday, September 08, 2017 19:50 - CONCLUSION: Negative noncontrast head CT. Richard Parker MD Chest X-Ray 09/08/17 0000 Signed Impressions: Service Date/Time: Friday, September 08, 2017 19:22 - CONCLUSION: No acute disease. There is no evidence of pneumonia. Richard Parker MD PE at Discharge GENERAL: female sitting up in bed SKIN: No rashes, ecchymoses or lesions. Cool and dry. CARDIOVASCULAR: Regular rate and rhythm without murmurs, gallops, or rubs. RESPIRATORY: Clear to auscultation. Breath sounds equal bilaterally. No wheezes , rales, or rhonchi. GASTROINTESTINAL: Abdomen soft, non-tender, nondistended. No guarding. MUSCULOSKELETAL: Extremities without clubbing, cyanosis, or edema. No joint tenderness, effusion, or edema noted. No calf tenderness. NEUROLOGICAL: Awake and alert. Cranial nerves II through XII intact. Motor and sensory within normal limits. Five out of 5 muscle strength in all muscle groups. Normal speech. Hospital Course 1. Altered mental status CT of the head negative for acute process MRI/MRA brain with small subacute left thalamic CVA, carotid ultrasound with borderline significant r carotid stenosis Neurology consulted, appreciate recommendations Continue aspirin and increase Pravachol to 40 mg daily. Risk factor modification. Neg DENIA for PFO Outpatient follow-up regarding borderline significant right carotid stenosis 2. Hypertension/hyperlipidemia. Echocardiogram shows LVH and diastolic dysfunction. Strict BP control. CHF education, I/O and monitor weight Continue home medications 3. Hypokalemia Status post by mouth repletion Follow-up BMP FEN Heart healthy diet Electrolytes: Monitor and replete when necessary Pt Condition on Discharge: Stable Discharge Disposition: Discharge Home Discharge Time: > 30 minutes Discharge Instructions DIET: Follow Instructions for: Heart Healthy Diet Activities you can perform: Regular-No Restrictions Activities to Avoid: Driving Follow up Referrals: Neurology - [address] Vogel Spoke with Glo at Dr. Vogel's office, she stated the chief medical technologist will call the patient to set up follow up appointment. Provided the patient with address and telephone number for Dr. Vogel's office. PCP Follow-up - 2-[address] Keating Speech Therapy - 1 Week New Medications: Aspirin DR (Aspirin EC) 81 Mg Tabdr 162 MG PO DAILY for Prevent Blood Clot, #60 TAB 0 Refills Changed Medications: Lovastatin (Lovastatin) 20 Mg Tab 40 MG PO DAILY for Cholesterol Management, #60 TAB (Changed from: 20 MG) Continued Medications: Enalapril (Enalapril) 10 Mg Tab 10 MG PO DAILY Estradiol (Estradiol) 1 Mg Tab 1 MG PO DAILY Caio Sherwood MD Sep 11, 2017 17:39
--- NOTE | 2017-09-14 19:00 | ECHRPT ---
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 BP: / HR: Rhythm: Technical Quality:Good Medications Complications There were no complications prior to, during or in recovery from the transesophag eal echocardiogram.. Proc. Components The patient was brought to the diagnostic imaging area in a fasting state after o btaining an informed consent.. The DENIA probe was passed into the posterior pharynx , mid-esophagus, di stal esophagus, and gastric fundus.. DENIA was performed at multiple levels.. The patient tolerated the procedure well and there were no complications.. FINDINGS LEFT VENTRICLE Normal left ventricular size and wall thickness. The left ventricular systolic function is normal wi th an estimated ejection fraction in the range of 60-65%. Left ventricular diastolic function parameters a re normal. RIGHT VENTRICLE Normal right ventricular size and systolic function. LEFT ATRIUM The left atrial size is normal. RIGHT ATRIUM The right atrial size is normal. ATRIAL APPENDAGES Normal left atrial appendage size with no evidence of thrombus formation. ATRIAL SEPTUM Large very mobile interatrial septal aneurysm. Bubbly study negative for PFO. AORTA The aortic root, proximal ascending and descending apear normal. MITRAL VALVE Structurally normal mitral valve. [id number] mitral valve regurgitation with 3 tiny lets AORTIC VALVE Slight aortic valve sclerosis is present. Trileaflet aortic valve. Trace aortic valve regurgitation. TRICUSPID VALVE Structurally normal tricuspid valve. No tricuspid valve stenosis or regurgitation. VESSELS The inferior vena cava is normal in size. PULMONARY VALVE No pulmonary valve regurgitation or stenosis. PERICADIUM No pericardial effusion. Tee Salvador MD (Electronically Signed) Final Date:14 September 2017 10:56
== END 2017-09-11 18:09 | disposition home or self-care (01) ==
LOC: NEPE 18:09 → NEDA 22:01 → N07A 09-09 01:16
PROVIDERS: ADMIT Internal Medicine; ATTEND Internal Medicine
DX: R41.82 Altered mental status, unspecified (principal); I10 Essential (primary) hypertension; E78.5 Hyperlipidemia, unspecified; E87.6 Hypokalemia; R94.31 Abnormal electrocardiogram [ECG] [EKG]; E78.00 Pure hypercholesterolemia, unspecified; R47.01 Aphasia; I65.21 Occlusion and stenosis of right carotid artery; Q21.1 Atrial septal defect; Z79.899 Other long term (current) drug therapy; Z86.73 Personal history of transient ischemic attack (TIA), and cerebral infarction without residual deficits; Z95.0 Presence of cardiac pacemaker
CPT/HCPCS: 70450; 70544; 70551; 71045; 80048; 80053; 80061; 81001; 83036; 84484; 85025; 85610; 85730; 87086; 92507; 92610; 93005; 93306; 93312; 93320; 93325; 93880; 97162; 97166; 97532; 99285; G0378; G8987; G8988; G8989